=== PATIENT | male | born 2005 | race Two or more races ===

== ENCOUNTER 2024-12-31 04:39 | Emergency (ER) | payer MEDICAID ==
[~2024-12-31] VITALS: Ht 182.9 cm; Wt 136.1 kg
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
[2024-12-31] MEDS ORDERED: KETOROLAC TROMETH 60MG/2ML VIAL IM ONE (05:45)
[2024-12-31] MEDS ORDERED: HYDROcodone-ACET 10/325MG TAB PO ONE (05:45)
[2024-12-31] MEDS: ONDANSETRON HCL 4 MG/2 ML VIAL IV ONE (06:15)
[2024-12-31] MEDS: KETOROLAC TROMETH 30 MG/ML 1ML VIAL IV ONE (06:16)
[2024-12-31] MEDS: MORPHINE SULFATE 4 MG/ML SYR/VIAL IV ONE (06:17)
[2024-12-31 07:40] VITALS: BP 141/78; PULSE 108; RESP 13; TEMP 98.7; O2SAT 96
== END 2024-12-31 07:35 | disposition short-term general hospital (02) ==
LOC: EDBD 04:39 → ER 04:39
DX: S22.081A Stable burst fracture of T11-T12 vertebra, initial encounter for closed fracture (principal); S39.012A Strain of muscle, fascia and tendon of lower back, initial encounter; G44.319 Acute post-traumatic headache, not intractable; W22.10XA Striking against or struck by unspecified automobile airbag, initial encounter; Y93.89 Activity, other specified; Y92.488 Other paved roadways as the place of occurrence of the external cause; Y99.8 Other external cause status
CPT/HCPCS: 70450; 72128; 72131; 96374; 96375; 99285; J1885; J2270; J2405